=== PATIENT | female | born 1980 | race Caucasian/White ===

== ENCOUNTER 2018-07-16 09:38 | Emergency (ER) | payer OTHER ==
[2018-07-16 09:55] VITALS: BP 140/84; PULSE 90; TEMP 98.4; BMI 29.2
[2018-07-16 10:08] LABS: URINE APPEARANCE SLCLOUDY; URINE BILIRUBIN NEGATIVE (<2.0 mg/dL); URINE COLOR STRAW; URINE GLUCOSE (UA) NEGATIVE (NEGATIVE); URINE KETONE NEGATIVE (NEGATIVE); URINE LEUK ESTERASE NEGATIVE (NEGATIVE); URINE NITRITE NEGATIVE (NEGATIVE); URINE PROTEIN NEGATIVE (NEGATIVE); URINE UROBILINOGEN NEGATIVE mg/dL (0.2-1.0)
[2018-07-16 10:10] LABS: HCG,QUALITATIVE URINE Negative
[2018-07-16] MEDS ORDERED: ACETAMINOPHEN 1000 MG/100 ML VIAL (NON FORMULARY) IVPB ONE (10:36)
[2018-07-16] MEDS ORDERED: SODIUM CHLORIDE 1,000 ML IV STA (10:36)
--- NOTE | 2018-07-16 10:37 | PDOC ---
History of Present Illness - General Chief Complaint: Pain, Acute Stated Complaint: ABD PAIN Time Seen by Provider: 07/16/18 09:53 History Source: Patient Exam Limitations: No Limitations - History of Present Illness Initial Comments: 07/16/18 13:55 Patient is a 37-year-old female no past medical history who presents to the ER today for abdominal pain and bloating for 2 weeks. Patient states that her stomach feels larger than usual. Denies nausea, vomiting and diarrhea. She states her bowel movements have been normal for her. Denies recent antibiotic use. Denies fevers, chills, shortness of breath, difficulty breathing, chest pain, frequency, urgency and hematuria. Past History - Travel Traveled outside of the country in the last 30 days: No Close contact w/someone who was outside of country & ill: No - Past Medical History Allergies/Adverse Reactions: Allergies Allergy/AdvReac Type Severity Reaction Status Date / Time No Known Allergies Allergy Verified 07/16/18 09:42 Home Medications: Ambulatory Orders NK [No Known Home Medication] 07/16/18 - Suicide/Smoking/Psychosocial Hx Smoking History: Never smoked Review of Systems - Review of Systems Able to Perform ROS?: Yes Comments:: 07/16/18 10:35 CONSTITUTIONAL: Absent: fever, chills, diaphoresis, generalized weakness, malaise, loss of appetite HEENT: Absent: rhinorrhea, nasal congestion, throat pain, throat swelling, difficulty swallowing, mouth swelling, ear pain, eye pain, visual Changes CARDIOVASCULAR: Absent: chest pain, loss of consciousness, palpitations, irregular heart rate, peripheral edema RESPIRATORY: Absent: cough, shortness of breath, dyspnea with exertion, orthopnea, wheezing, stridor, hemoptysis GASTROINTESTINAL: Present: abdominal pain, bloating. Absent: abdominal distension, nausea, vomiting, diarrhea, constipation, melena, hematochezia GENITOURINARY: Absent: dysuria, frequency, urgency, hesitancy, hematuria, flank pain, genital pain MUSCULOSKELETAL: Absent: myalgia, arthralgia, joint swelling SKIN: Absent: rash, itching, pallor HEMATOLOGIC/IMMUNOLOGIC: Absent: easy bleeding, easy bruising, lymphadenopathy, frequent infections ENDOCRINE: Absent: unexplained weight gain, unexplained weight loss, heat intolerance, cold intolerance NEUROLOGIC: Absent: headache, focal weakness or paresthesias, dizziness, unsteady gait, seizure, mental status changes, bladder or bowel incontinence PSYCHIATRIC: Absent: anxiety, depression, suicidal or homicidal ideation, hallucinations. Is the patient limited Serbian proficient: No *Physical Exam - Vital Signs Last Vital Signs Temp Pulse Resp BP Pulse Ox 98.4 F 90 18 140/84 97 07/16/18 09:43 07/16/18 09:43 07/16/18 09:43 07/16/18 09:43 07/16/18 09:43 - Physical Exam Comments: 07/16/18 10:35 GENERAL: Well developed, well nourished. Awake and alert. No acute distress. HEENT: Normocephalic, atraumatic. PERRLA, EOMI. No conjunctival pallor. Sclera are non- icteric. Moist mucous membranes. Oropharynx is clear. NECK: Supple. Full ROM. No JVD. Carotid pulses 2+ and symmetric, without bruits. No thyromegaly. No lymphadenopathy. CARDIOVASCULAR: Regular rate and rhythm. No murmurs, rubs, or gallops. Distal pulses are 2+ and symmetric. PULMONARY: No evidence of respiratory distress. Lungs clear to auscultation bilaterally. No wheezing, rales or rhonchi. ABDOMINAL: Diffuse TTP with no focal findings. Soft. Mildly distended. No rebound or guarding. No organomegaly. Normoactive bowel sounds. MUSCULOSKELETAL Normal range of motion at all joints. No bony deformities or tenderness. No CVA tenderness. EXTREMITIES: No cyanosis. No clubbing. No edema. No calf tenderness. SKIN: Warm and dry. Normal capillary refill. No rashes. No jaundice. NEUROLOGICAL: Alert, awake, appropriate. Cranial nerves 2-12 intact. No deficits to light touch and temperature in face, upper extremities and lower extremities. No motor deficits in the in face, upper extremities and lower extremities. Normoreflexic in the upper and lower extremities. Normal speech. Toes are down- going bilaterally. Gait is normal without ataxia. PSYCHIATRIC: Cooperative. Good eye contact. Appropriate mood and affect. Moderate Sedation - Procedure Monitoring Vital Signs: Procedure Monitoring Vital Signs Temperature 98.4 F 07/16/18 09:43 Pulse Rate 90 07/16/18 09:43 Respiratory Rate 18 07/16/18 09:43 Blood Pressure 140/84 07/16/18 09:43 O2 Sat by Pulse Oximetry (%) 97 07/16/18 09:43 ED Treatment Course - LABORATORY CBC & Chemistry Diagram: 07/16/18 10:53 07/16/18 10:53 - ADDITIONAL ORDERS Additional order review: Laboratory Results 07/16/18 09:40 Urine Color Straw Urine Appearance Slcloudy Urine pH 7.0 Ur Specific [place] 1.005 L Urine Protein Negative Urine Glucose (UA) Negative Urine Ketones Negative Urine Blood Negative Urine Nitrite Negative Urine Bilirubin Negative Urine Urobilinogen Negative Ur Leukocyte Esterase Negative Urine HCG, Qual Negative Medical Decision Making - Medical Decision Making 07/16/18 14:00 Pt is a 37 y/o F who presents to the ED with two weeks of abdominal pain and bloating. Diffuse tenderness on exam with no focal findings Labs show elevated liver enzymes. No leukocystosis or other gross electrolyte abnormalities CT shows a liver lesion Will obtain US of RUQ at this time. 07/16/18 16:49 Hemangioma and fatty liver seen on RUQ US. No acute gallbladder pathology Pt reports relief of pain after IV tylenol Suspect bloating and abdominal pain from diet, however,given US findings, will have patient follow up with GI. Referral given DC home I discussed the physical exam findings, ancillary test results and final diagnoses with the patient. I answered all of the patient's questions. The patient was satisfied with the care received and felt comfortable with the discharge plan and treatment plan. The Patient agrees to follow up with the primary care physician/specialist within 24-72 hours. Return precautions were given. *DC/Admit/Observation/Transfer Diagnosis at time of Disposition: Abdominal pain Qualifiers: Abdominal location: generalized Qualified Code(s): R10.84 - Generalized abdominal pain - Discharge Dispostion Disposition: HOME Condition at time of disposition: Stable Decision to Admit order: No - Referrals Referrals: Cali Lux MD [Staff Physician] - - Patient Instructions Printed Discharge Instructions: DI for Nonalcoholic Fatty Liver Disease Additional Instructions: You were evaluated for your abdominal pain today Your results showed a fatty liver. Please monitor your diet Eat a bland diet including plain rice, toast, applesauce, and bananas There was also a spot on the liver on ultrasound Please follow up with gastroenterology. A referral has been provided Return to the ED with any new or worsening symptoms - Post Discharge Activity Forms/Work/School Notes: Back to Work
[2018-07-16] MEDS ORDERED: ACETAMINOPHEN INJECTION 100 ML IVPB ONE (10:45)
[2018-07-16 11:06] LABS: BASO % 0.8 % (0-2.0); EOS % 1.1 % (0-4.5); HEMATOCRIT 40.2 % (32.4-45.2); HEMOGLOBIN 13.8 GM/dL (10.7-15.3); LYMPH % 17.1 % (8-40); MCH 29.9 pg (25.7-33.7); MCHC 34.5 g/dl (32.0-36.0); MEAN CELL VOLUME 86.7 fl (80-96); MEAN PLT VOLUME 9.4 fl (7.5-11.1); MONO % 6.6 % (3.8-10.2); NEUT % 74.4 % (42.8-82.8); PLATELET COUNT 239 K/MM3 (134-434); RBC 4.63 M/mm3 (3.60-5.2); RDW 14.1 % (11.6-15.6); WHITE BLOOD COUNT 10.8 K/mm3 (4.0-10.0)
[2018-07-16 11:33] LABS: ALBUMIN 3.6 g/dl (3.4-5.0); ALK PHOS 110 U/L (45-117); ANION GAP 4 MMOL/L (8-16); BILIRUBIN,TOTAL 0.1 mg/dL (0.2-1); BLOOD UREA NITROGEN 13 mg/dL (7-18); CHLORIDE 104 mmol/L (98-107); CO2 30 mmol/L (21-32); CREATININE 0.6 mg/dL (0.55-1.3); GLUCOSE,RANDOM 91 mg/dL (74-106); POTASSIUM 4.4 mmol/L (3.5-5.1); SGOT/AST 55 U/L (15-37); SGPT/ALT 143 U/L (13-61); SODIUM 138 mmol/L (136-145); TOT PROT 7.3 g/dl (6.4-8.2)
[2018-07-16 11:40] LABS: LIPASE 248 U/L (73-393)
== END 2018-07-16 17:03 | disposition home or self-care (01) ==
LOC: JER 09:38
PROC: 3E033NZ Introduction of Analgesics, Hypnotics, Sedatives into Peripheral Vein, Percutaneous Approach (ICD-10-PCS; principal; 2018-07-16)
DX: K76.0 Fatty (change of) liver, not elsewhere classified (principal)
CPT/HCPCS: 36415; 74177-TC; 76705-TC; 80053; 81003; 83690; 84703; 85025; 87086; 99284-25; J0131; J7030

== ENCOUNTER 2020-01-11 03:37 | Inpatient (IN) | payer OTHER ==
--- NOTE | 2020-01-11 04:42 | PDOC ---
History of Present Illness - General Chief Complaint: Pain, Acute Stated Complaint: ABD DISTENTION Time Seen by Provider: 01/11/20 04:42 History Source: Patient Exam Limitations: Language Barrier (Lao) - History of Present Illness Initial Comments: 01/11/20 04:42 Sita Sin is a Lao-speaking 39F with PMH HLD presenting with epigastric abdominal pain. Patient reports since 12PM yesterday has had constant, burning, epigastric pain worsened with meals and unrelieved by drinking milk, no N/V/C/D, poor PO intake. Has had this pain before last July but stronger, per chart review negative cardiac eval and felt better after GI cocktail. Patient denies chest pain, palpitations, SOB, cough, MERRILL, dizziness, urinary symptoms. LMP 12/18, regular, no discharge or bleeding. Only PSH 10 years ago. Denies alcohol/drug/tobacco use. NKDA. Past History - Medical History Allergies/Adverse Reactions: Allergies Allergy/AdvReac Type Severity Reaction Status Date / Time No Known Allergies Allergy Verified 08/06/19 01:55 Home Medications: Ambulatory Orders Pantoprazole Sodium [Protonix -] 20 mg PO BID #14 tablet.ec 08/06/19 Pantoprazole Sodium [Protonix -] 20 mg PO BID #14 tablet.ec 08/06/19 COPD: No - Reproductive History Is Patient Now?: No - Immunization History Td Vaccination: Yes TDAP Vaccination: Yes Immunization Up to Date: Yes - Psycho-Social/Smoking History Smoking History: Never smoked Have you smoked in the past 12 months: No - Substance Abuse Hx (Audit-C & DAST Scrn) How often the patient has a drink containing alcohol: Never Score: In Men: 4 or > Positive; In Women: 3 or > Positive: 0 Screen Result (Pos requires Nsg. Audit-10AR): Negative Review of Systems - Review of Systems Constitutional: No: Chills HEENTM: No: Symptoms Reported Respiratory: No: Symptoms reported Cardiac (ROS): No: Symptoms Reported ABD/GI: Yes: Poor Appetite, Poor Fluid Intake, Abdominal cramping. No: Constipated, Diarrhea, Nausea, Vomiting : No: Symptoms Reported Musculoskeletal: No: Symptoms Reported Integumentary: No: Symptoms Reported Neurological: No: Symptoms reported Endocrine: No: Symptoms Reported Hematologic/Lymphatic: No: Symptoms Reported All Other Systems: Reviewed and Negative *Physical Exam - Vital Signs Last Vital Signs Temp Pulse Resp BP Pulse Ox 98.3 F 76 18 121/67 99 01/11/20 04:18 01/11/20 04:18 01/11/20 04:18 01/11/20 04:18 01/11/20 04:18 - Physical Exam General Appearance: Yes: Nourished, Appropriately Dressed, Mild Distress, Other (in bed hunched over, but cooperative with exam) HEENT: positive: EOMI, LICO, Normal Voice, Symmetrical, Pharynx Normal, Hearing Grossly Normal. negative: Scleral Icterus (R), Scleral Icterus (L), Pharyngeal Erythema, Tonsillar Exudate, Tonsillar Erythema Neck: positive: Normal Thyroid, Supple. negative: Tender, Rigid, Lymphadenopathy (R), Lymphadenopathy (L), Tender lateral, Tender midline Respiratory/Chest: positive: Lungs Clear, Normal Breath Sounds. negative: Chest Tender, Respiratory Distress, Accessory Muscle Use, Crackles, Rales, Rhonchi, Stridor, Wheezing Cardiovascular: positive: Regular Rhythm, Regular Rate. negative: Murmur Gastrointestinal/Abdominal: positive: Normal Bowel Sounds, Tender (epigastric), Soft, Guarding, Rebound. negative: Hernia, Mass Musculoskeletal: positive: Normal Inspection. negative: CVA Tenderness, CVA Tenderness (R), CVA Tenderness (L), Decreased Range of Motion, Vertebral Tenderness Extremity: positive: Normal Capillary Refill, Normal Inspection, Normal Range of Motion, Pelvis Stable. negative: Tender, Coldness, Cyanosis, Pedal Edema, Swelling, Calf Tenderness, Erythema Integumentary: positive: Normal Color, Dry, Warm. negative: Cold, Clammy Neurologic: positive: Fully Oriented, Alert, Normal Mood/Affect, Normal Response, Motor Strength 5/5, Other (gait normal) ED Treatment Course - LABORATORY CBC & Chemistry Diagram: 01/11/20 05:01 01/11/20 05:01 Medical Decision Making - Medical Decision Making 01/11/20 05:25 Patient has PMH HLD, GERD, presents with acute onset epigastric burning. Ddx includes ACS, GERD, gastritis, pancreatitis, GB pathology, appendicitis. VSS, PE remarkable for epigastric tenderness. Evaluating broadly with CBC/CMP/CP/ECG/CXR/Coags/ test/Mag/UA/UC. Ordering Ofirmev and Pepcid/Maalox for pain control. Will need CTAP for evaluation of intra-abdominal pathology given US not available at this time. 01/11/20 05:34 Labs notable for: - WBC 14 - CMP WNL - lipase WNL - trop negative - UA WNL - UPREG negative 01/11/20 06:24 Bedside US shows gallstone with normal thickness GB wall, no pericholecystic fluid, unable to visualize CBD well. Patient getting CT scan now. 01/11/20 06:35 ECG shows NSR with HR 61, QTc 430, low voltage, no MARIA LUISA/D, TWI in III. 01/11/20 06:[address] read at this time. Patient pain improved, doing better. Depending on CT scan, patient may need formal US for eval choledocholithiasis. Will sign out to day team, plan for CT read, ? US, and appropriate dispo home vs. admit and GI or surgery consult. Discharge - Discharge Information Problems reviewed: Yes Clinical Impression/Diagnosis: Epigastric abdominal pain Condition: Stable - Follow up/Referral Referrals: Tho Andrade MD [Primary Care Provider] - - Patient Discharge Instructions - Post Discharge Activity
[2020-01-11] MEDS ORDERED: ACETAMINOPHEN 1000 MG/100 ML VIAL (NON FORMULARY) IVPB ONE (04:48)
[2020-01-11] MEDS ORDERED: LACTATED RINGERS SOLUTION 1000 ML INFUS.BAG IV ONE (04:48)
[2020-01-11] MEDS ORDERED: MAG HYDROX/AL HYDROX/SIMETH 30 ML UNIT-DOSE CUP PO ONE (04:55)
[2020-01-11] MEDS ORDERED: FAMOTIDINE 20 MG/50 ML IVPB 20 MG/50 ML MG IVPB ONE (04:55)
--- NOTE | 2020-01-11 04:59 | PDOC ---
Attending Attestation - Resident Resident Name: Zachary Walker - ED Attending Attestation I have performed the following: I have examined & evaluated the patient, The case was reviewed & discussed with the resident, I agree w/resident's findings & plan - HPI HPI: 01/11/20 05:55 see resident hpi - Physicial Exam PE: 01/11/20 05:55 see resident exam - Medical Decision Making 01/11/20 05:55 39-year-old female with right upper quadrant and epigastric pain Labs, EKG and CT scan abdomen and pelvis IV fluid normal saline, analgesics administered Pending results and reevaluation 01/11/20 05:59 Discharge - Discharge Information Problems reviewed: Yes Clinical Impression/Diagnosis: Epigastric abdominal pain Condition: Stable - Follow up/Referral Referrals: Tho Andrade MD [Primary Care Provider] - - Patient Discharge Instructions - Post Discharge Activity
[2020-01-11 05:15] LABS: BASO % 0.7 % (0-2.0); EOS % 1.1 % (0-4.5); LYMPH % 13.5 % (8-40); MCH 28.1 pg (25.7-33.7); MCHC 33.4 g/dl (32.0-36.0); MEAN PLT VOLUME 9.3 fl (7.5-11.1); MONO % 5.8 % (3.8-10.2); NEUT % 78.9 % (42.8-82.8); PLATELET COUNT 265 K/MM3 (134-434); RBC 4.64 M/mm3 (3.60-5.2); RDW 13.8 % (11.6-15.6)
[2020-01-11] MEDS ORDERED: ACETAMINOPHEN INJECTION 100 ML IVPB ONE (05:15)
[2020-01-11] MEDS ORDERED: MAG HYDROX/AL HYDROX/SIMETH 30 ML UNIT-DOSE CUP ONE (05:16)
[2020-01-11 05:42] LABS: PH,URINE 7.5 (5.0-8.0); URINE APPEARANCE Clear; URINE BILIRUBIN Negative (NEGATIVE); URINE COLOR Yellow; URINE GLUCOSE (UA) Negative (NEGATIVE); URINE KETONE Negative (NEGATIVE); URINE LEUK ESTERASE Negative (NEGATIVE); URINE NITRITE Negative (NEGATIVE); URINE PROTEIN Negative (NEGATIVE); URINE UROBILINOGEN 0.2 mg/dL (0.2-1.0)
[2020-01-11 05:52] LABS: ALBUMIN 3.6 g/dl (3.4-5.0); ALK PHOS 89 U/L (45-117); ANION GAP 6 MMOL/L (8-16); BILIRUBIN,TOTAL 0.2 mg/dL (0.2-1); BLOOD UREA NITROGEN 10.5 mg/dL (7-18); CALCIUM 8.7 mg/dL (8.5-10.1); CHLORIDE 105 mmol/L (98-107); CO2 28 mmol/L (21-32); CREATININE 0.5 mg/dL (0.55-1.3); GLUCOSE,RANDOM 99 mg/dL (74-106); LIPASE 176 U/L (73-393); POTASSIUM 4.1 mmol/L (3.5-5.1); SGOT/AST 23 U/L (15-37); SGPT/ALT 53 U/L (13-61); SODIUM 139 mmol/L (136-145)
--- NOTE | 2020-01-11 07:08 | PDOC ---
*Physical Exam - Vital Signs Last Vital Signs Temp Pulse Resp BP Pulse Ox 98.3 F 76 18 121/67 99 01/11/20 04:18 01/11/20 04:18 01/11/20 04:18 01/11/20 04:18 01/11/20 04:18 <Yosef Robledo - Last Filed: 01/11/20 08:34> - Vital Signs Last Vital Signs Temp Pulse Resp BP Pulse Ox 98.3 F 76 18 121/67 99 01/11/20 04:18 01/11/20 04:18 01/11/20 07:55 01/11/20 04:18 01/11/20 07:55 <RodyTiara - Last Filed: 01/11/20 09:38> ED Treatment Course - LABORATORY CBC & Chemistry Diagram: 01/11/20 05:01 01/11/20 05:01 - ADDITIONAL ORDERS Additional order review: Laboratory Results 01/11/20 01/11/20 01/11/20 05:01 05:01 05:00 Sodium 139 Potassium 4.1 Chloride 105 Carbon Dioxide 28 Anion Gap 6 L BUN 10.5 Creatinine 0.5 L Est GFR (CKD-EPI)AfAm 140.31 Est GFR (CKD-EPI)NonAf 121.06 Random Glucose 99 Lactic Acid 1.3 Calcium 8.7 Total Bilirubin 0.2 AST 23 ALT 53 Alkaline Phosphatase 89 Troponin I < 0.02 Total Protein 7.0 Albumin 3.6 Lipase 176 Urine Color Yellow Urine Appearance Clear Urine pH 7.5 Ur Specific [place] 1.015 Urine Protein Negative Urine Glucose (UA) Negative Urine Ketones Negative Urine Blood Negative Urine Nitrite Negative Urine Bilirubin Negative Urine Urobilinogen 0.2 Ur Leukocyte Esterase Negative Urine HCG, Qual 01/11/20 05:00 Sodium Potassium Chloride Carbon Dioxide Anion Gap BUN Creatinine Est GFR (CKD-EPI)AfAm Est GFR (CKD-EPI)NonAf Random Glucose Lactic Acid Calcium Total Bilirubin AST ALT Alkaline Phosphatase Troponin I Total Protein Albumin Lipase Urine Color Urine Appearance Urine pH Ur Specific [place] Urine Protein Urine Glucose (UA) Urine Ketones Urine Blood Urine Nitrite Urine Bilirubin Urine Urobilinogen Ur Leukocyte Esterase Urine HCG, Qual Negative 01/11/20 05:01 RBC 4.64 MCV 84.0 MCHC 33.4 RDW 13.8 MPV 9.3 Neutrophils % 78.9 Lymphocytes % 13.5 D Monocytes % 5.8 Eosinophils % 1.1 Basophils % 0.7 - Medications Given in the ED: ED Medications Discontinued Medications Generic Name Dose Route Start Last Admin Trade Name Faustina PRN Reason Stop Dose Admin Acetaminophen 1,000 mg 01/11/20 04:48 01/11/20 05:30 Ofirmev Injection - IVPB 01/11/20 04:49 1,000 mg ONCE ONE Administration Al Hydroxide/Mg Hydroxide 30 ml 01/11/20 04:55 01/11/20 05:30 Mylanta Oral Suspension - PO 01/11/20 04:56 30 ml ONCE ONE Administration Famotidine/Sodium Chloride 20 mg in 50 mls @ 100 mls/hr 01/11/20 04:55 01/11/20 05:30 Pepcid 20 Mg Premixed Ivpb - IVPB 01/11/20 05:24 100 mls/hr ONCE ONE Administration Lactated Ringer's 1,000 ml 01/11/20 04:48 01/11/20 05:30 Lactated Ringers Solution IV 01/11/20 04:49 1,000 ml ONCE ONE Administration <Yosef Robledo - Last Filed: 01/11/20 08:34> - LABORATORY CBC & Chemistry Diagram: 01/11/20 05:01 01/11/20 05:01 - ADDITIONAL ORDERS Additional order review: Laboratory Results 01/11/20 01/11/20 01/11/20 05:01 05:01 05:00 Sodium 139 Potassium 4.1 Chloride 105 Carbon Dioxide 28 Anion Gap 6 L BUN 10.5 Creatinine 0.5 L Est GFR (CKD-EPI)AfAm 140.31 Est GFR (CKD-EPI)NonAf 121.06 Random Glucose 99 Lactic Acid 1.3 Calcium 8.7 Total Bilirubin 0.2 AST 23 ALT 53 Alkaline Phosphatase 89 Troponin I < 0.02 Total Protein 7.0 Albumin 3.6 Lipase 176 Urine Color Yellow Urine Appearance Clear Urine pH 7.5 Ur Specific [place] 1.015 Urine Protein Negative Urine Glucose (UA) Negative Urine Ketones Negative Urine Blood Negative Urine Nitrite Negative Urine Bilirubin Negative Urine Urobilinogen 0.2 Ur Leukocyte Esterase Negative Urine HCG, Qual 01/11/20 05:00 Sodium Potassium Chloride Carbon Dioxide Anion Gap BUN Creatinine Est GFR (CKD-EPI)AfAm Est GFR (CKD-EPI)NonAf Random Glucose Lactic Acid Calcium Total Bilirubin AST ALT Alkaline Phosphatase Troponin I Total Protein Albumin Lipase Urine Color Urine Appearance Urine pH Ur Specific [place] Urine Protein Urine Glucose (UA) Urine Ketones Urine Blood Urine Nitrite Urine Bilirubin Urine Urobilinogen Ur Leukocyte Esterase Urine HCG, Qual Negative 01/11/20 05:01 RBC 4.64 MCV 84.0 MCHC 33.4 RDW 13.8 MPV 9.3 Neutrophils % 78.9 Lymphocytes % 13.5 D Monocytes % 5.8 Eosinophils % 1.1 Basophils % 0.7 - Medications Given in the ED: ED Medications Discontinued Medications Generic Name Dose Route Start Last Admin Trade Name Freq PRN Reason Stop Dose Admin Acetaminophen 1,000 mg 01/11/20 04:48 01/11/20 05:30 Ofirmev Injection - IVPB 01/11/20 04:49 1,000 mg ONCE ONE Administration Al Hydroxide/Mg Hydroxide 30 ml 01/11/20 04:55 01/11/20 05:30 Mylanta Oral Suspension - PO 01/11/20 04:56 30 ml ONCE ONE Administration Famotidine/Sodium Chloride 20 mg in 50 mls @ 100 mls/hr 01/11/20 04:55 01/11/20 05:30 Pepcid 20 Mg Premixed Ivpb - IVPB 01/11/20 05:24 100 mls/hr ONCE ONE Administration Piperacillin Sod/Tazobactam 50 mls @ 100 mls/hr 01/11/20 07:21 01/11/20 08:12 Sod 3.375 gm/ Dextrose IVPB 01/11/20 07:50 100 mls/hr ONCE ONE Administration Protocol Lactated Ringer's 1,000 ml 01/11/20 04:48 01/11/20 05:30 Lactated Ringers Solution IV 01/11/20 04:49 1,000 ml ONCE ONE Administration <Tiara Fine - Last Filed: 01/11/20 09:38> ED Progress Note - Progress Note Progress Note: 01/11/20 07:07 Patient accepted at sign out. Epigastric pain. CT A/P read pending. Possibly f/u with RUQ US. Dispo pending result. Likely surgery consult for symptomatic cholelithiasis. Patient resting comfortably in bed. Abdomen soft, tender in epigastric region. 01/11/20 08:34 CT equivocal for cholecystitis. Given one dose zosyn, ordered for T&S, coags. Called Dr. Spain who requested RUQ prior to accepting the patient for surgery. Signed out to Dr. Perdomo for admission <Yosef Robledo - Last Filed: 01/11/20 08:34> Medical Decision Making - Medical Decision Making 01/11/20 09:37 Vital Signs Temp Pulse Resp BP Pulse Ox 98.3 F 76 18 121/67 99 01/11/20 04:18 01/11/20 04:18 01/11/20 07:55 01/11/20 04:18 01/11/20 07:55 vitals reviewed s/o from Dr Sibley at 7AM pending sono CT with suspected acute brandon RUQ sono confirms acute cholecystitis with stones admit to Dr Perdomo, x, NPO, surgery cs with Dr Spain. <Tiara Fine - Last Filed: 01/11/20 09:38> Discharge - Discharge Information Problems reviewed: Yes - Admission Yes <Yosef Robledo - Last Filed: 01/11/20 08:34> - Discharge Information Problems reviewed: Yes - Admission Yes <Tiara Fine - Last Filed: 01/11/20 09:38> - Discharge Information Clinical Impression/Diagnosis: Epigastric abdominal pain, Cholecystitis Condition: Stable
[2020-01-11] MEDS ORDERED: PIPERACILLIN/TAZOB 3.375 GM 3.375 GM in DEXTROSE 5%-WATER - 50 ML IVPB ONE (07:21)
[2020-01-11] MEDS ORDERED: PIPERACILLIN/TAZOB 3.375 GM 3.375 GM/50 ML BAG IVPB ONE (08:02)
--- NOTE | 2020-01-11 09:08 | EKG ---
Test Reason : Blood Pressure : / mmHG Vent. Rate : 061 BPM Atrial Rate : 061 BPM P-R Int : 174 ms QRS Dur : 096 ms QT Int : 428 ms P-R-T Axes : 006 046 010 degrees QTc Int : 430 ms NORMAL SINUS RHYTHM LOW VOLTAGE QRS BORDERLINE ECG WHEN COMPARED WITH ECG OF 06-AUG-2019 03:13, NO SIGNIFICANT CHANGE WAS FOUND Confirmed by Luis Fernando Goyal MD ([id number]) on 01/11/2020 9:07:36 AM Referred By: Confirmed By:Luis Fernando Goyal MD
[2020-01-11 10:06] LABS: INR 1.05 (0.83-1.09); PROTHROMBIN TIME (PATIENT) 12.4 SEC (9.7-13.0)
[2020-01-11 10:09] LABS: ACTIVATED PTT 31.3 SECONDS (25.2-36.5)
--- NOTE | 2020-01-11 12:19 | CONSULT ---
- Consultation REQUESTING PROVIDER: CONSULT REQUEST: We have been asked to surgically evaluate this patient for acute cholecytitis PCP:Robbin Perdomo HISTORY OF PRESENT ILLNESS: Sita Sin is a 39F with PMH HLD presenting with epigastric abdominal pain. The patient states that she had similar epigastric pain back in July 2019. She was evaluated and treated for GERD after a negative cardiac eval and improvement after GI cocktail she was discharged from [facility]. Patient reports since noon yesterday, she has had constant, burning, epigastric pain and nausea worsened with meals and unrelieved by drinking milk. Patient denies and fever, chills, chest pain, palpitations, SOB, cough, MERRILL, dizziness, urinary symptoms. LMP 12/18, regular, no discharge or bleeding. Only PSH C-sectios X3 10 years ago. Denies alcohol/drug/tobacco use. NKDA. Past History - Medical History Allergies/Adverse Reactions: Allergies Allergy/AdvReac Type Severity Reaction Status Date / Time No Known Allergies Allergy Verified 08/06/19 01:55 Home Medications: Ambulatory Orders Pantoprazole Sodium [Protonix -] 20 mg PO BID #14 tablet.ec 08/06/19 Pantoprazole Sodium [Protonix -] 20 mg PO BID #14 tablet.ec 08/06/19 COPD: No - Reproductive History Is Patient Now?: No - Immunization History Td Vaccination: Yes TDAP Vaccination: Yes Immunization Up to Date: Yes - Psycho-Social/Smoking History Smoking History: Never smoked Have you smoked in the past 12 months: No - Substance Abuse Hx (Audit-C & DAST Scrn) How often the patient has a drink containing alcohol: Never Score: In Men: 4 or > Positive; In Women: 3 or > Positive: 0 Screen Result (Pos requires Nsg. Audit-10AR): Negative Review of Systems - Review of Systems Constitutional: No: Chills HEENTM: No: Symptoms Reported Respiratory: No: Symptoms reported Cardiac (ROS): No: Symptoms Reported ABD/GI: Yes: Poor Appetite, Poor Fluid Intake, Abdominal cramping/pain, Nausea. No: Constipated, Diarrhea, Vomiting : No: Symptoms Reported Musculoskeletal: No: Symptoms Reported Integumentary: No: Symptoms Reported Neurological: No: Symptoms reported Endocrine: No: Symptoms Reported Hematologic/Lymphatic: No: Symptoms Reported All Other Systems: Reviewed and Negative *Physical Exam Vital Signs Period Temp Pulse Resp BP Sys/Villegas Pulse Ox Last 24 Hr 98.3 F-98.3 F 66-76 16-18 118-121/67-67 99-99 - Physical Exam General Appearance: Nourished, Appropriately Dressed, Mild Distress 2/2 pain but cooperative with exam. HEENT: LICO, Normal Voice, Hearing Grossly Normal. negative: Scleral Icterus (R), Scleral Icterus (L) Respiratory/Chest: Unlabored resp on RA with no accessory muscle use Gastrointestinal/Abdominal: Obese, Normal Bowel Sounds, TTP in epigastrum and RUQ, Soft, Guarding, Rebound. negative: ND, no Hernias, Masses, no scars or lesions Musculoskeletal: Moving all extremities without limitation Extremity: UE and LE warm and well perfused, B/L LE compartments soft, supple and non-tender with +DP pulses Integumentary: Normal Color, Dry, Warm. negative: Cold, Clammy Neurologic: Fully Oriented, Alert, Normal Mood/Affect, Normal Response CBC, BMP 01/11/20 05:01 01/11/20 05:01 Abnormal Lab Results 01/11/20 01/11/20 05:01 05:01 WBC 14.0 H Absolute Neuts (auto) 11.1 H Anion Gap 6 L Creatinine 0.5 L - Medical Decision Making 01/11/20 05:25 Patient has PMH HLD, GERD, presents with acute onset epigastric burning. Ddx includes ACS, GERD, gastritis, pancreatitis, GB pathology, appendicitis. VSS, PE remarkable for epigastric tenderness. Evaluating broadly with CBC/CMP/CP/ECG/CXR/Coags/ test/Mag/UA/UC. Ordering Ofirmev and Pepcid/Maalox for pain control. Will need CTAP for evaluation of intra-abdominal pathology given US not available at this time. 01/11/20 05:34 Labs notable for: - WBC 14 - CMP WNL - lipase WNL - trop negative - UA WNL - UPREG negative 01/11/20 06:24 Bedside US shows gallstone with normal thickness GB wall, no pericholecystic fluid, unable to visualize CBD well. Patient getting CT scan now. 01/11/20 06:35 ECG shows NSR with HR 61, QTc 430, low voltage, no MARIA LUISA/D, TWI in III. 01/11/20 06:[address] read at this time. Patient pain improved, doing better. Depending on CT scan, patient may need formal US for eval choledocholithiasis. Will sign out to day team, plan for CT read, ? US, and appropriate dispo home vs. admit and GI or surgery consult. PMHx: PSHx: Home Medications Medication Instructions Recorded NK [No Known Home Medication] 01/11/20 Allergies Allergy/AdvReac Type Severity Reaction Status Date / Time No Known Allergies Allergy Verified 01/11/20 07:57 REVIEW OF SYSTEMS: CONSTITUTIONAL: Absent: fever, chills, diaphoresis, generalized weakness, malaise, loss of appetite, weight change CARDIOVASCULAR: Absent: chest pain, syncope, palpitations, irregular heart rate, lightheadedness, peripheral edema RESPIRATORY: Absent: cough, shortness of breath, dyspnea with exertion, wheezing, stridor, hemoptysis GASTROINTESTINAL: Absent: abdominal pain, abdominal distension, nausea, vomiting, diarrhea, constipation, melena, hematochezia GENITOURINARY: Absent: dysuria, frequency, urgency, hesitancy, hematuria, flank pain, genital pain MUSCULOSKELETAL: Absent: myalgia, arthralgia, joint swelling, back pain, neck pain SKIN: Absent: rash, itching, pallor HEMATOLOGIC/IMMUNOLOGIC: Absent: easy bleeding, easy bruising, lymphadenopathy NEUROLOGIC: Absent: headache, focal weakness, paresthesias, dizziness, unsteady gait, seizure, mental status changes, bladder or bowel incontinence PSYCHIATRIC: Absent: anxiety, depression, suicidal or homicidal ideation, hallucinations. PHYSICAL EXAM: GENERAL: Awake, alert, and fully oriented, in no acute distress. HEAD: Normal with no signs of trauma. EYES: PERRL, sclera anicteric, conjunctiva clear. NECK: Normal ROM, supple without lymphadenopathy, JVD, or masses. LUNGS: Clear to auscultation bilat anteriorly. No wheezes, and no crackles. No accessory muscle use. HEART: Regular rate and rhythm. No murmurs ABDOMEN: Soft, nontender, not distended, normoactive bowel sounds, no guarding, no rebound, no masses. No organomegaly. MUSCULOSKELETAL: Normal ROM at all joints. No bony deformities or tenderness. No CVA tenderness. UPPER EXTREMITIES: 2+ pulses, warm, well-perfused. No cyanosis. Cap refill <2 seconds. No peripheral edema. LOWER EXTREMITIES: 2+ pulses, warm, well-perfused. No calf tenderness. No peripheral edema. NEUROLOGICAL: Normal speech, gait not observed. PSYCH: Cooperative. Good eye contact. Appropriate mood and affect. SKIN: Warm, dry, normal turgor, no rashes or lesions noted. Vital Signs Temperature 98.3 F 01/11/20 09:42 Pulse Rate 66 01/11/20 09:42 Respiratory Rate 16 01/11/20 12:03 Blood Pressure 118/67 01/11/20 09:42 O2 Sat by Pulse Oximetry (%) 99 01/11/20 12:03 Lab Results WBC 14.0 K/mm3 (4.0-10.0) H 01/11/20 05:01 RBC 4.64 M/mm3 (3.60-5.2) 01/11/20 05:01 Hgb 13.0 GM/dL (10.7-15.3) 01/11/20 05:01 Hct 39.0 % (32.4-45.2) 01/11/20 05:01 MCV 84.0 fl (80-96) 01/11/20 05:01 MCHC 33.4 g/dl (32.0-36.0) 01/11/20 05:01 RDW 13.8 % (11.6-15.6) 01/11/20 05:01 Plt Count 265 K/MM3 (134-434) 01/11/20 05:01 INR 1.05 (0.83-1.09) 01/11/20 09:40 Sodium 139 mmol/L (136-145) 01/11/20 05:01 Potassium 4.1 mmol/L (3.5-5.1) 01/11/20 05:01 Chloride 105 mmol/L (98-107) 01/11/20 05:01 Carbon Dioxide 28 mmol/L (21-32) 01/11/20 05:01 Anion Gap 6 MMOL/L (8-16) L 01/11/20 05:01 BUN 10.5 mg/dL (7-18) 01/11/20 05:01 Creatinine 0.5 mg/dL (0.55-1.3) L 01/11/20 05:01 Random Glucose 99 mg/dL (74-106) 01/11/20 05:01 Calcium 8.7 mg/dL (8.5-10.1) 01/11/20 05:01 Blood Type O POSITIVE 01/11/20 09:40 Antibody Screen Negative 01/11/20 09:40 Abdominal Ultrasound 01/11/20: Distended gallbladder with intraluminal stones suggestive of acute cholecystitis. Problem List - Problems (1) Acute cholecystitis Assessment/Plan: 39yo with acute cholecystitis. 1) NPO-plan for OR tomorrow for lap brandon possible open with Dr Spain in the afternoon 2) Pain control 3) Medical optimization 4) IVF 5) IV ABX per medicine Evaluation and plan discussed with Dr Spain Code(s): K81.0 - ACUTE CHOLECYSTITIS (2) Cholecystitis Code(s): K81.9 - CHOLECYSTITIS, UNSPECIFIED
--- NOTE | 2020-01-11 13:50 | PN ---
Progress Note, Physician Chief Complaint: Acute cholecystitis History of Present Illness: NAD Mild epigastric, RUQ and LUQ pain CTAP + cholecystitis Seen by Surgery Plan for surgery in AM - Objective Vital Signs: Vital Signs Temperature 98.3 F 01/11/20 09:42 Pulse Rate 66 01/11/20 09:42 Respiratory Rate 16 01/11/20 12:03 Blood Pressure 118/67 01/11/20 09:42 O2 Sat by Pulse Oximetry (%) 99 01/11/20 12:03 Constitutional: Yes: Well Nourished, No Distress, Calm Cardiovascular: Yes: Regular Rate and Rhythm Respiratory: Yes: Regular, CTA Bilaterally Gastrointestinal: Yes: Soft, Hypoactive Bowel Sounds, Tenderness (RUQ and LUQ), Tenderness, Epigastrium Genitourinary: Yes: WNL Musculoskeletal: Yes: WNL Extremities: Yes: WNL Edema: No Peripheral Pulses WNL: Yes Neurological: Yes: Alert, Oriented Psychiatric: Yes: Alert, Oriented Labs: CBC, BMP 01/11/20 05:01 01/11/20 05:01 INR, PTT INR 1.05 (0.83-1.09) 01/11/20 09:40 Problem List - Problems (1) Acute cholecystitis Assessment/Plan: -Surgical consult appreciated -Pain management: Acetaminophen 1g Q6H PRN for pain 1-5 Morphine 1 mg Q4H PRN for pain 6-10 -ID consult -IV Zosyn -NPO -IVF Problems reviewed: Yes Code(s): K81.0 - ACUTE CHOLECYSTITIS (2) Abdominal pain Problems reviewed: Yes Code(s): R10.9 - UNSPECIFIED ABDOMINAL PAIN Qualifiers: Abdominal location: generalized Qualified Code(s): R10.84 - Generalized abdominal pain Assessment/Plan See problem list
[2020-01-11] MEDS ORDERED: MORPHINE SULFATE 2 MG/ML VIAL IVPUSH PRN (17:18)
[2020-01-11] MEDS ORDERED: ACETAMINOPHEN 1000 MG/100 ML VIAL (NON FORMULARY) IVPB PRN (17:18)
[2020-01-11] MEDS ORDERED: LACTATED RINGERS SOLUTION 1,000 ML/1,000 ML INFUS.BAG IV SCH (17:30)
[2020-01-11] MEDS ORDERED: PANTOPRAZOLE SODIUM 40 MG VIAL ONE (17:42)
[2020-01-11] MEDS ORDERED: PIPERACILLIN/TAZOB 2.25 GM 2.25 GM/50 ML BAG IVPB ONE (17:42)
[2020-01-11] MEDS: PIPERACILLIN/TAZOB 2.25 GM 2.25 GM in DEXTROSE 5%-WATER - 50 ML IVPB SCH ×2 (17:54→22:43)
[2020-01-11] MEDS: PANTOPRAZOLE SODIUM 40 MG VIAL IVPUSH SCH (17:54)
[2020-01-11] MEDS ORDERED: DEXTROSE 5%-WATER - 50 ML IVPB ONE (22:03)
[2020-01-11] MEDS ORDERED: PIPERACILLIN/TAZOBACTAM 2.25 GM VIAL IVPB ONE (22:03)
[2020-01-12 00:27] VITALS: BMI 32.2
[2020-01-12] MEDS ORDERED: PIPERACILLIN/TAZOBACTAM 2.25 GM VIAL IVPB ONE ×2 (03:04→09:51)
[2020-01-12] MEDS ORDERED: DEXTROSE 5%-WATER - 50 ML IVPB ONE ×2 (03:04→09:51)
[2020-01-12] MEDS: PIPERACILLIN/TAZOB 2.25 GM 2.25 GM in DEXTROSE 5%-WATER - 50 ML IVPB SCH ×2 (03:09→09:53)
[2020-01-12] MEDS: PANTOPRAZOLE SODIUM 40 MG VIAL IVPUSH SCH (09:53)
--- NOTE | 2020-01-12 10:19 | CON.ID ---
Consult Consult Specialty:: infectious disease Referred by:: dr pop Reason for Consultation:: cholycystitis - History of Present Illness Chief Complaint: RUQ pain History of Present Illness: abdominal pain that started on day prior to admission no fevers had similar pain one year ago that resolved no fevers or chills no nausea or vomiting workup showed acute cholycystitis now npo awaiting surgery started on zosyn pending surgery no respiratory symptoms covid negative no PMH only surgery csection 3 kids - History Source History Provided By: Patient Limitations to Obtaining History: No Limitations - Past Medical History ...LMP: 12/19/19 ...: No Endocrine: No: Diabetes Mellitus - Past Surgical History Past Surgical History: Yes: - Alcohol/Substance Use Hx Alcohol Use: No - Smoking History Smoking history: Never smoked Have you smoked in the past 12 months: No - Social History Usual Living Arrangement: With Spouse ADL: Independent Occupation: not working Place of : Other ([place]) History of Recent Travel: No Home Medications - Allergies Allergies/Adverse Reactions: Allergies Allergy/AdvReac Type Severity Reaction Status Date / Time No Known Allergies Allergy Verified 01/11/20 07:57 - Home Medications Home Medications: Ambulatory Orders NK [No Known Home Medication] 01/11/20 Family Medical History Family History: Denies Review of Systems - Review of Systems Constitutional: reports: Loss of Appetite. denies: Chills, Fever, Malaise, Night Sweats Eyes: reports: No Symptoms HENT: reports: No Symptoms Neck: reports: No Symptoms Cardiovascular: reports: No Symptoms Respiratory: reports: No Symptoms Gastrointestinal: reports: Abdominal Pain. denies: Constipation, Melena, Vomiting Genitourinary: reports: No Symptoms Breasts: reports: No Symptoms Reported Musculoskeletal: reports: No Symptoms Integumentary: reports: No Symptoms Physical Exam Vital Signs: Vital Signs Temperature 98.3 F 01/12/20 06:00 Pulse Rate 75 01/12/20 06:00 Respiratory Rate 01/12/20 06:00 Blood Pressure 115/59 L 01/12/20 06:00 O2 Sat by Pulse Oximetry (%) 97 01/12/20 06:00 Constitutional: Yes: Well Nourished, No Distress, Calm Eyes: Yes: Conjunctiva Clear, EOM Intact HENT: Yes: Atraumatic, Normocephalic. No: Thrush Neck: Yes: Supple, Trachea Midline Cardiovascular: Yes: Regular Rate and Rhythm Respiratory: Yes: Regular, CTA Bilaterally Gastrointestinal: Yes: Normal Bowel Sounds, Soft. No: Tenderness, Tenderness, Epigastrium ...Rectal Exam: Yes: Deferred Renal/: No: CVA Tenderness - Left, CVA Tenderness - Right Musculoskeletal: Yes: WNL Extremities: Yes: WNL Edema: No Psychiatric: Yes: Alert, Oriented Labs: CBC, BMP 01/11/20 05:01 01/11/20 05:01 Imaging - Results Chest X-ray: Report Reviewed, Image Reviewed Cat Scan: Report Reviewed Ultrasound: Report Reviewed Problem List - Problems (1) Acute cholecystitis Code(s): K81.0 - ACUTE CHOLECYSTITIS (2) Leukocytosis Code(s): D72.829 - ELEVATED WHITE BLOOD CELL COUNT, UNSPECIFIED Assessment/Plan can continue zosyn pending surgery suspect will not need antibiotics postop- defer to surgery and operative findings
--- NOTE | 2020-01-12 10:32 | PN ---
Progress Note, Physician History of Present Illness: feels better this am - Current Medication List Current Medications: Active Medications Acetaminophen (Ofirmev Injection -) 1,000 mg IVPB Q6H PRN PRN Reason: PAIN LEVEL 1-5 Stop: 01/12/20 17:20 Lactated Ringer's (Lactated Ringers Solution) 1,000 ml in 1,000 mls @ 75 mls/hr IV ASDIR [facility] Last Admin: 01/11/20 17:54 Dose: 75 mls/hr Documented by: Piperacillin Sod/Tazobactam (Sod 3.375 gm/ Dextrose) 50 mls @ 100 mls/hr IVPB Q6H [facility]; Protocol Morphine Sulfate (Morphine Sulfate) 1 mg IVPUSH Q4H PRN PRN Reason: PAIN LEVEL 6-10 Pantoprazole Sodium (Protonix Iv) 40 mg IVPUSH DAILY [facility] Last Admin: 01/12/20 09:53 Dose: 40 mg Documented by: - Objective Vital Signs: Vital Signs Temperature 98.3 F 01/12/20 06:00 Pulse Rate 75 01/12/20 06:00 Respiratory Rate 01/12/20 06:00 Blood Pressure 115/59 L 01/12/20 06:00 O2 Sat by Pulse Oximetry (%) 97 01/12/20 06:00 Cardiovascular: Yes: Regular Rate and Rhythm Respiratory: Yes: Regular, CTA Bilaterally Gastrointestinal: Yes: Normal Bowel Sounds, Soft. No: Tenderness Labs: CBC, BMP 01/11/20 05:01 01/11/20 05:01 INR, PTT INR 1.05 (0.83-1.09) 01/11/20 09:40 Problem List - Problems (1) Acute cholecystitis Assessment/Plan: -Surgical consult appreciated -Pain management: Acetaminophen 1g Q6H PRN for pain 1-5 Morphine 1 mg Q4H PRN for pain 6-10 -ID consult -IV Zosyn -NPO -IVF Code(s): K81.0 - ACUTE CHOLECYSTITIS (2) Abdominal pain Code(s): R10.9 - UNSPECIFIED ABDOMINAL PAIN Qualifiers: Abdominal location: generalized Qualified Code(s): R10.84 - Generalized abdominal pain
[2020-01-12 12:11] LABS: BASO % 0.6 % (0-2.0); EOS % 1.3 % (0-4.5); HEMOGLOBIN 12.6 GM/dL (10.7-15.3); LYMPH % 22.6 % (8-40); MCH 28.5 pg (25.7-33.7); MCHC 33.3 g/dl (32.0-36.0); MEAN CELL VOLUME 85.6 fl (80-96); MEAN PLT VOLUME 9.4 fl (7.5-11.1); MONO % 5.7 % (3.8-10.2); NEUT % 69.8 % (42.8-82.8); PLATELET COUNT 253 K/MM3 (134-434); RBC 4.43 M/mm3 (3.60-5.2); RDW 13.9 % (11.6-15.6); WHITE BLOOD COUNT 10.4 K/mm3 (4.0-10.0)
[2020-01-12] MEDS ORDERED: LIDOCAINE HCL/PF 2% SDV 5ML VIAL ONE (12:17)
[2020-01-12] MEDS ORDERED: ROCURONIUM BROMIDE 100 MG/10 ML VIAL ONE (12:18)
[2020-01-12] MEDS ORDERED: MIDAZOLAM HCL 2 MG/2 ML SINGLE DOSE VIAL ONE (12:18)
[2020-01-12] MEDS ORDERED: fentaNYL CITRATE 250 MCG/5 ML VIAL ONE (12:18)
[2020-01-12] MEDS ORDERED: PROPOFOL 20 ML ONE ×2 (12:18→13:10)
[2020-01-12 12:32] LABS: ALBUMIN 3.5 g/dl (3.4-5.0); BILIRUBIN,TOTAL 0.5 mg/dL (0.2-1); CALCIUM 8.8 mg/dL (8.5-10.1); CREATININE 0.6 mg/dL (0.55-1.3); POTASSIUM 3.9 mmol/L (3.5-5.1); TOT PROT 6.7 g/dl (6.4-8.2)
[2020-01-12] MEDS ORDERED: BUPIVACAINE HCL 100 ML ONE (12:55)
[2020-01-12] MEDS ORDERED: ONDANSETRON 4 MG/2 ML VIAL IVPUSH PRN ×3 (12:58→19:21)
[2020-01-12] MEDS ORDERED: IBUPROFEN 800 MG/8 ML IJ IVPB PRN ×3 (12:58→19:21)
[2020-01-12] MEDS ORDERED: DEXAMETHASONE SOD PHOSPHATE 4 MG/1 ML VIAL ONE (13:22)
[2020-01-12] MEDS ORDERED: BUPIVACAINE HCL/PF 0.5% (5 MG/ML) 30 ML VIAL IJ ONE ×2 (13:30→14:07)
[2020-01-12] MEDS ORDERED: GLYCOPYRROLATE 0.2 MG/1 ML VIAL ONE (13:58)
[2020-01-12] MEDS ORDERED: NEOSTIGMINE METHYLSULFATE 0.5 MG/ML - 10 ML MDV ONE (13:58)
[2020-01-12] MEDS ORDERED: ACETAMINOPHEN 1000 MG/100 ML VIAL (NON FORMULARY) IVPB PRN (14:50)
[2020-01-12] MEDS ORDERED: MORPHINE SULFATE 2 MG/ML VIAL IVPUSH PRN ×2 (14:50→19:21)
--- NOTE | 2020-01-12 14:54 | OP ---
Operative Note - Note: Operative Date: 01/12/20 Pre-Operative Diagnosis: acute cholecystitis/cholelithiasis Operation: laparoscopic cholecystectomy Findings: as dictated Post-Operative Diagnosis: Same as Pre-op Surgeon: Andrea Spain [employer] Laundry Worker: Vish Grant Anesthesiologist/INTERACTIVE ART DIRECTOR: Jeannie Rivas Anesthesia: General, Local Specimens Removed: gallbladder, gallstones Estimated Blood Loss (mls): 25 (ml) Fluid Volume Replaced (mls): 500 (ml LR) Operative Report Dictated: Yes
--- NOTE | 2020-01-12 14:56 | SURG ---
Surgery Snow Shoveler Note Snow Shoveler: Vish Grant PA-C (Suzy) Date of Service: 01/12/20 Diagnosis: acute cholecystitis/cholelithiasis Procedure: Operation: laparoscopic cholecystectomy I was present for the entirety of the operative procedure. For further detail, please refer to operative report. Visit type - Case Type Case Type: ED Admission - Emergency Emergency Visit: Yes ED Registration Date: 01/11/20 Care time: The patient presented to the Emergency Department on the above date and was hospitalized for further evaluation of their emergent condition. - New patient This patient is new to me today: Yes Date on this admission: 01/12/20 - Critical Care Critical Care patient: No
[2020-01-12] MEDS ORDERED: PIPERACILLIN/TAZOB 3.375 GM 3.375 GM in DEXTROSE 5%-WATER - 50 ML IVPB SCH (15:00)
[2020-01-12] MEDS ORDERED: PIPERACILLIN/TAZOB 2.25 GM 2.25 GM in DEXTROSE 5%-WATER - 50 ML IVPB SCH (15:00)
--- NOTE | 2020-01-12 15:05 | OP ---
DATE OF OPERATION: 01/12/2020 PREOPERATIVE DIAGNOSIS: Acute cholecystitis and cholelithiasis. PREOPERATIVE DIAGNOSIS: Acute cholecystitis and cholelithiasis. PROCEDURE: Laparoscopic cholecystectomy. SURGEON: Andrea Spain MD INSTRUCTOR TRAFFIC SAFETY: Vish Grant PA-C ANESTHESIA: General. OPERATIVE FINDINGS: Acute cholecystitis and cholelithiasis. The rest of the findings were unremarkable. DESCRIPTION OF PROCEDURE: The patient was placed on the operating room table in supine position. After the induction of general anesthesia, the patient's abdomen was prepped with ChloraPrep and draped in sterile fashion. Time-out was taken and then pneumoperitoneum established above the umbilicus using a Veress needle. Once 15 mm of intra-abdominal pressure was obtained, a 5-mm port was placed at the umbilicus. Additional lateral 5-mm ports and a subxiphoid 12-mm port were placed and laparoscopy carried out, and the previously noted findings were observed. The gallbladder was placed on cephalad and lateral traction, and dissection was begun at the neck of the gallbladder where the peritoneum was opened medially and laterally using blunt and sharp dissection and electrocautery. Dissection continued in the triangle of Calot where the cystic duct was identified coursing from the neck of the gallbladder distally to the common bile duct. It was dissected proximally and distally for length. Similarly, the artery was similarly identified and dissected. A critical view of safety was taken, and then the cystic duct divided proximally and distally using Endo Lucio after it was clipped twice proximally and distally with large hemoclips. The artery was similarly clipped and divided. Hemostasis was checked for and noted to be good and then the gallbladder was removed from the liver bed in a retrograde fashion using electrocautery. Prior to removal from the edge of the liver, hemostasis was again verified and then the gallbladder removed from the edge of the liver, placed in an EndoCatch, and brought out through the subxiphoid port. Pneumoperitoneum was reestablished, hemostasis verified again, and then the 5-mm lateral and subxiphoid ports were removed under laparoscopic vision without evidence of bleeding from the port sites. The umbilical port was removed and the pneumoperitoneum evacuated. All port sites were infiltrated with 0.5% Marcaine and the skin edges closed with 4-0 Biosyn in a subcuticular and continuous fashion. Steri-Strips and Band-Aid dressings were placed and the procedure terminated at this point and the patient aroused from general anesthesia and transferred to the post anesthesia care unit in stable condition awake and alert. ESTIMATED BLOOD LOSS: 15 mL. REPLACEMENTS: Crystalloid. DRAINS: None. SPECIMENS: Gallbladder and contents to pathology. I, Andrea Spain, was physically present in the operating room from the time the patient was placed on the operating room table until she was transferred to the post anesthesia care unit in [employer]. MD GUILLERMO Hernandez/[id number] MTDD
[2020-01-12] MEDS: LACTATED RINGERS SOLUTION 1,000 ML/1,000 ML INFUS.BAG IV SCH ×3 (16:00→19:29)
[2020-01-12] MEDS ORDERED: ACETAMINOPHEN 1000 MG/100 ML VIAL (NON FORMULARY) IVPB ONE (17:42)
[2020-01-12] MEDS ORDERED: oxyCODONE HCL 5 MG TABLET PO PRN (19:21)
[2020-01-13] MEDS: LACTATED RINGERS SOLUTION 1,000 ML/1,000 ML INFUS.BAG IV SCH (06:44)
[2020-01-13 06:56] LABS: BASO % 0.4 % (0-2.0); EOS % 0.9 % (0-4.5); HEMATOCRIT 33.3 % (32.4-45.2); LYMPH % 19.4 % (8-40); MEAN PLT VOLUME 9.3 fl (7.5-11.1); MONO % 6.1 % (3.8-10.2); NEUT % 73.2 % (42.8-82.8); PLATELET COUNT 241 K/MM3 (134-434); RBC 3.91 M/mm3 (3.60-5.2); RDW 13.5 % (11.6-15.6); WHITE BLOOD COUNT 11.6 K/mm3 (4.0-10.0)
[2020-01-13 07:18] LABS: BILIRUBIN,TOTAL 0.2 mg/dL (0.2-1); CALCIUM 8.4 mg/dL (8.5-10.1); CREATININE 0.6 mg/dL (0.55-1.3); POTASSIUM 3.6 mmol/L (3.5-5.1)
--- NOTE | 2020-01-13 07:56 | PN ---
Progress Note, Physician - Current Medication List Current Medications: Active Medications Lactated Ringer's (Lactated Ringers Solution) 1,000 ml in 1,000 mls @ 75 mls/hr IV ASDIR [facility] Last Admin: 01/13/20 06:44 Dose: 75 mls/hr Documented by: Morphine Sulfate (Morphine Sulfate) 1 mg IVPUSH Q4H PRN PRN Reason: PAIN LEVEL 6-10 Oxycodone HCl (Roxicodone -) 5 mg PO Q6H PRN PRN Reason: PAIN LEVEL 7 - 10 Last Admin: 01/13/20 06:45 Dose: 5 mg Documented by: Pantoprazole Sodium (Protonix Iv) 40 mg IVPUSH DAILY [facility] - Objective Vital Signs: Vital Signs Temperature 97.4 F L 01/13/20 06:00 Pulse Rate 64 01/13/20 06:00 Respiratory Rate 18 01/13/20 06:00 Blood Pressure 116/67 01/13/20 06:00 O2 Sat by Pulse Oximetry (%) 99 01/13/20 06:00 Cardiovascular: Yes: Regular Rate and Rhythm Respiratory: Yes: Regular, CTA Bilaterally Gastrointestinal: Yes: Normal Bowel Sounds, Soft Labs: CBC, BMP 01/13/20 06:00 01/13/20 06:00 INR, PTT INR 1.05 (0.83-1.09) 01/11/20 09:40 Problem List - Problems (1) Acute cholecystitis Assessment/Plan: -Surgical consult appreciated -Pain management: Acetaminophen 1g Q6H PRN for pain 1-5 Morphine 1 mg Q4H PRN for pain 6-10 -ID consult -IV Zosyn -NPO -IVF Operative Date: 01/12/20 Pre-Operative Diagnosis: acute cholecystitis/cholelithiasis Operation: laparoscopic cholecystectomy Findings: as dictated Post-Operative Diagnosis: Same as Pre-op Surgeon: Andrea Spain Further plan per surgery Code(s): K81.0 - ACUTE CHOLECYSTITIS (2) Abdominal pain Code(s): R10.9 - UNSPECIFIED ABDOMINAL PAIN Qualifiers: Abdominal location: generalized Qualified Code(s): R10.84 - Generalized abdominal pain
[2020-01-13] MEDS ORDERED: PANTOPRAZOLE SODIUM 40 MG VIAL IVPUSH SCH ×2 (10:00)
--- NOTE | 2020-01-13 10:19 | PN ---
Progress Note (short form) - Note Progress Note: Surgery: Pt without any nausea or emesis. Tolerated regular diet this am. Vital Signs Period Temp Pulse Resp BP Sys/Villegas Pulse Ox Last 24 Hr 97.4 F-98.6 F 57-81 10-20 106-128/57-68 94-100 GEN: A&0x3, NAD ABD: soft, non-distended, inc tenderness CBC, BMP 01/13/20 06:00 01/13/20 06:00 Laboratory Tests 01/13/20 06:00 Total Bilirubin 0.2 AST 35 ALT 69 H Alkaline Phosphatase 69 A/P; 39 yo female s/p lap brandon, POD#1 Regular diet May shower F/u with Dr. Spain next week for routine surgical follow up D/w Dr. Spain
[2020-01-13 11:06] VITALS: TEMP 98.2
[2020-01-13 14:11] VITALS: BP 123/71; PULSE 87
[2020-01-13] MEDS ORDERED: ACETAMINOPHEN 500 MG TABLET (FP) PO PRN (14:42)
[2020-01-13] MEDS ORDERED: MORPHINE SULFATE 2 MG/ML VIAL IVPUSH PRN (14:52)
[2020-01-13] MEDS ORDERED: oxyCODONE HCL 5 MG TABLET PO PRN (14:52)
--- NOTE | 2020-01-13 19:04 | DS ---
Physical Examination Vital Signs: Vital Signs Temperature 98.2 F 01/13/20 14:10 Pulse Rate 87 01/13/20 14:10 Respiratory Rate 18 01/13/20 14:10 Blood Pressure 123/71 01/13/20 14:10 O2 Sat by Pulse Oximetry (%) 96 01/13/20 10:58 Labs: CBC, BMP 01/13/20 06:00 01/13/20 06:00 Discharge Summary Problems reviewed: Yes Reason For Visit: CHOLECYSTITIS Current Active Problems Acute cholecystitis (Acute) Cholecystitis (Acute) Epigastric abdominal pain (Acute) Leukocytosis (Acute) Condition: Stable - Instructions Diet, Activity, Other Instructions: Dr. Spain Discharge Instructions Dear NINA ARELLANO, Post Operative Instructions Physical activity Resume your normal everyday activity as tolerated no heavy lifting or exercise until seen by your surgeon. You may walk unlimited amounts of and climb stairs. You may resume driving the car when you feel safe and comfortable behind the wheel. Wound care You have a liquid bandage over your incisions. This will begin to flake off over the next few days, please avoid picking at it. Please allow it to come off slowly on its own. When showering allow soap and water to run over the incision, do not scrub the incision. Pat dry well after showering. Diet There are no dietary restrictions. Eat healthy, high-fiber foods. Drink 6 to 8 glasses of liquid each day. This will assist in keeping your bowels are regular. Pain management You may take Tylenol or acetaminophen or Ibuprofen (for example, Motrin, Advil etc.) Any pain prescription medication ordered should be taken as prescribed for moderate to severe pain. Call Dr. Spain for any of the following: Severe pain not relieved by medication Fever of 101 or higher Excessive bleeding or drainage on dressing Inability to urinate Call the office at [phone] for a post operative appointment in 7 - 10 days. Referrals: Tho Andrade MD [Primary Care Provider] - 1 Week - Home Medications Comprehensive Discharge Medication List: Ambulatory Orders NK [No Known Home Medication] 01/11/20
--- NOTE | 2020-01-14 17:15 | PATH ---
Surgical Pathology Report Patient Name: NINA ARELLANO Med. Rec. #: [id number] /Age/Gender: 1980 (Age: 39) / F Account: [id number] Location: [facility] MED/SURG Taken: 01/12/2020 Received: 01/13/2020 Reported: 01/14/2020 Physicians: MD Robbin Fernando M.D. Specimen(s) Received GALLBLADDER Clinical History Cholecystitis Final Diagnosis GALLBLADDER, LAPAROSCOPIC CHOLECYSTECTOMY: CHRONIC CHOLECYSTITIS, CHOLESTEROLOSIS, AND CHOLELITHIASIS. Electronically Signed Iram Santana M.D. Gross Description Received in formalin, labeled "gallbladder," is a 6.6 x 2.8 x 2.8 cm. gallbladder with a 0.2 cm. in length portion of cystic duct attached. The outer surface is [place] and varies from smooth to shaggy. The lumen contains green, tenacious bile as well as 2 yellow, bosselated choleliths measuring 0.8 and 1.5 cm in greatest dimension. The mucosa is dark green and velvety with gold cholesterol stippling. The wall of the gallbladder ranging from 0.1-0.3 cm. in thickness. [employer] sections are submitted in one cassette. 01/13/2020 [facility]2020
== END 2020-01-13 20:43 | disposition home or self-care (01) | DRG 263 ==
LOC: JER 03:37 → JERBED 07:19 → J7W 18:53
PROVIDERS: ADMIT Family Medicine; ATTEND Family Medicine
PROC: 0FT44ZZ Resection of Gallbladder, Percutaneous Endoscopic Approach (ICD-10-PCS; principal; 2020-01-12 13:30)
DX: K80.00 Calculus of gallbladder with acute cholecystitis without obstruction (principal); D72.829 Elevated white blood cell count, unspecified; K21.9 Gastro-esophageal reflux disease without esophagitis; R63.0 Anorexia; Z68.32 Body mass index [BMI] 32.0-32.9, adult; E78.5 Hyperlipidemia, unspecified
CPT/HCPCS: 36415; 71046-TC-FY; 74177-TC; 76705-TC; 80053; 81003; 83605; 83690; 84484; 84703; 85025; 85610; 85730; 86850; 86900; 86901; 87086; 88304-TC; 93005; 93010; 94760; 99285-25; J0131; U0003